=== PATIENT | female | born 1990 | race Caucasian/White ===

== ENCOUNTER 2022-10-25 14:00 | Outpatient (CLI) | payer OTHER | END 2022-10-25 14:07 | disposition home or self-care (01) | LOC: SONOGRAMA 14:00 | DX: E28.8 Other ovarian dysfunction (principal); R10.2 Pelvic and perineal pain ==

== ENCOUNTER 2023-10-30 13:00 | Inpatient (IN) | payer OTHER ==
[~2023-10-30] VITALS: Ht 175.3 cm; Wt 70.3 kg
[2023-11-06] MEDS ORDERED: PRENATAL + DHA1 EAC1 PO (14:31)
[2023-11-07] MEDS ORDERED: RINGERS SOLUTION,LACTATED 1,000 ML IV SCH (04:45)
[2023-11-07] MEDS ORDERED: OXYTOCIN 20 UNITS/1000ML RL PIGGYBAG IV ONE (05:06)
[2023-11-07] MEDS ORDERED: CHLORHEXIDINE GLUCONATE 120 ML BOTTLE TOP ONE (05:06)
[2023-11-07] MEDS ORDERED: ERYTHROMYCIN BASE 1 GM TUBE OP ONE (05:06)
[2023-11-07 05:09] LABS: URINE BILIRRUBIN Negative (NEGATIVE); URINE BLOOD Large; URINE COLOR Yellow; URINE GLUCOSE Negative (NEGATIVE); URINE LEUKOCYTE Trace; URINE NITRATE Negative; URINE PROTEIN 30 (NEGATIVE)
[2023-11-07 05:10] LABS: URINE BACTERIA 298.6 uL (0.0-1933); URINE EPITHELIAL CELLS 27.3 uL (0.0-38.8); URINE RBC 703.3 uL (0.0-20.8); URINE WBC 35.8 uL (0.0-23.2)
[2023-11-07 05:12] LABS: URINE APPEARANCE CLOUDY
[2023-11-07 05:13] LABS: HEMATOCRIT 41.7 % (36.0-45.00); HEMOGLOBIN 14.2 g/dL (12.0-15.00); MEAN CELL VOLUME 90.9 fL (80.00-100.00); MEAN CORPUSCULAR HGB CONC 34.2 g/dl (32.0-36.0); PLATELET COUNT 126 K/uL (150-450); RED BLOOD COUNT 4.59 M/uL (4.00-6.00); RED CELL DISTRIBUTION WIDTH 13.9 % (11.5-14.5)
[2023-11-07 05:27] LABS: INR < 0.93; PARTIAL THROMBOPLASTIN TIME 32.5 SECONDS (22.0-34.0); PROTHROMBIN TIME 9.7 SECONDS (9.0-11.5)
[2023-11-07 05:32] LABS: ALBUMIN 2.9 gm/dL (3.4-5.0); BILIRUBIN TOTAL 0.39 mg/dL (0.3-1.2); CALCIUM 8.4 mg/dL (8.5-10.1); CREATININE SERUM 0.56 mg/dL (0.55-1.02); GFR 124.67; GLOBULINA 3.3 G/DL (2.4-3.5); POTASSIUM 3.97 mEq/L (3.5-5.1); TOTAL PROTEIN 6.2 gm/dL (6.4-8.2)
[2023-11-07] MEDS ORDERED: ERYTHROMYCIN BASE 1 GM TUBE OP SCH (12:30)
[2023-11-07] MEDS ORDERED: IBUprofen 400 MG TABLET PO PRN (12:30)
[2023-11-07] MEDS ORDERED: CHLORHEXIDINE GLUCONATE 120 ML BOTTLE TP SCH (12:30)
[2023-11-07] MEDS ORDERED: BENZOCAINE/MENTHOL 90 ML BOTTLE TOP SCH (17:00)
[2023-11-08 07:13] LABS: HEMATOCRIT 36.2 % (36.0-45.00); MEAN CELL VOLUME 91.5 fL (80.00-100.00); MEAN CORPUSCULAR HEMOGLOBIN 30.8 pg (27.00-32.0); MEAN CORPUSCULAR HGB CONC 33.7 g/dl (32.0-36.0); RED BLOOD COUNT 3.96 M/uL (4.00-6.00); RED CELL DISTRIBUTION WIDTH 13.8 % (11.5-14.5)
[2023-11-08 07:24] LABS: HEMOGLOBIN 12.2 g/dL (12.0-15.00); PLATELET COUNT 126 K/uL (150-450)
== END 2023-11-09 14:26 | disposition home or self-care (01) | DRG 807 ==
LOC: OB/GYN 11-03 13:00 → LDR 11-07 04:43 → OB/GYN 11-07 04:43
PROVIDERS: Obstetrics & Gynecology; ADMIT Obstetrics & Gynecology Maternal & Fetal Medicine; ATTEND Obstetrics & Gynecology Maternal & Fetal Medicine
PROC: 10E0XZZ Delivery of Products of Conception, External Approach (ICD-10-PCS; principal; 2023-11-07)
PROC: 4A1HXCZ Monitoring of Products of Conception, Cardiac Rate, External Approach (ICD-10-PCS; 2023-11-07)
DX: O80 Encounter for full-term uncomplicated delivery (principal); Z37.0 Single live birth; Z3A.40 40 weeks gestation of pregnancy; Z20.822 Contact with and (suspected) exposure to COVID-19

== ENCOUNTER 2023-11-02 14:09 | Outpatient (CLI) | payer OTHER | END 2023-11-02 15:33 | disposition home or self-care (01) | LOC: NST 14:09 | PROVIDERS: ATTEND Obstetrics & Gynecology Gynecology | DX: Z34.83 Encounter for supervision of other normal pregnancy, third trimester (principal) ==

== ENCOUNTER 2025-04-21 11:50 | Inpatient (IN) | payer OTHER ==
[~2025-04-21] VITALS: Ht 175.3 cm; Wt 58.1 kg
[~2025-04-21 11:50] MED LIST: PRENATAL + DHA1 EAC1 PO
[2025-05-05] VITALS (10 sets, daily range): BP systolic 91–116; BP diastolic 56–73
[2025-05-05] MEDS ORDERED: CHLORHEXIDINE GLUCONATE 120 ML BOTTLE TOP ONE (02:31)
[2025-05-05] MEDS ORDERED: ERYTHROMYCIN BASE OPHT 1GM EACH TUBE OP ONE (02:31)
[2025-05-05] MEDS ORDERED: OXYTOCIN 20 UNITS/1000ML RL PIGGYBAG IV ONE (02:31)
[2025-05-05] MEDS ORDERED: LIDOCAINE HCL 1% 10ML VIAL ONE (02:32)
[2025-05-05 02:57] LABS: LYMPH # 4.34 (1.18-3.74)
[2025-05-05 02:59] LABS: BASO % 0.4 % (0.1-1.2); EOS # 0.22 (0.04-0.54); EOS % 1.4 % (0.7-7.0); LYMPH % 28.4 % (19.3-53.1); MEAN PLATELET VOLUME 12.90 fl (9.4-12.4); MONO # 1.25 (0.24-0.82); MONO % 8.2 % (4.7-12.5); NEUT # 9.36 (1.56-6.13); NEUT % 61.1 % (34.0-71.1); RED CELL DISTRIBUTION WIDTH 13.2 % (11.6-14.4)
[2025-05-05 03:13] LABS: INR < 0.93
[2025-05-05] MEDS ORDERED: CHLORHEXIDINE GLUCONATE 120 ML BOTTLE TP SCH (03:15)
[2025-05-05] MEDS ORDERED: OXYTOCIN 1,000 ML IV SCH (03:15)
[2025-05-05 03:16] LABS: ALT/SGPT 23.0 U/L (12-78); AST/SGOT 20.0 U/L (15-37); BILIRUBIN TOTAL 0.35 mg/dL (0.3-1.2); BUN CREA RATIO 27.0 (7.0-25.0); CREATININE SERUM 0.67 mg/dL (0.55-1.02); GFR 100.75; GLOBULINA 3.7 G/DL (2.4-3.5); GLUCOSE FASTING 93.0 mg/dL (65-100); LYMPHOCYTE MAN 29.0 %; MONOCYTE MAN 2.0 %; NEUTROPHILS MAN 65.0 %; OSMOLALITY SERUM 281.0 MOSM/KG (275-295)
[2025-05-06 00:16] VITALS: BP 94/55
[2025-05-06 06:41] LABS: BASO % 0.3 % (0.1-1.2); EOS # 0.32 (0.04-0.54); EOS % 2.8 % (0.7-7.0); LYMPH # 2.80 (1.18-3.74); LYMPH % 24.3 % (19.3-53.1); MEAN PLATELET VOLUME 12.80 fl (9.4-12.4); MONO # 0.77 (0.24-0.82); MONO % 6.7 % (4.7-12.5); NEUT # 7.52 (1.56-6.13); NEUT % 65.4 % (34.0-71.1); RED CELL DISTRIBUTION WIDTH 13.9 % (11.6-14.4)
[2025-05-06 08:18] VITALS: BP 97/64
== END 2025-05-06 15:07 | disposition home or self-care (01) | DRG 807 ==
LOC: OB/GYN → LDR 05-05 02:29 → OB/GYN 05-05 03:36
PROVIDERS: Obstetrics & Gynecology; ADMIT Obstetrics & Gynecology Maternal & Fetal Medicine; ATTEND Obstetrics & Gynecology Maternal & Fetal Medicine
PROC: 10E0XZZ Delivery of Products of Conception, External Approach (ICD-10-PCS; principal; 2025-05-05)
PROC: 4A1HXCZ Monitoring of Products of Conception, Cardiac Rate, External Approach (ICD-10-PCS; 2025-05-05)
DX: O48.0 Post-term pregnancy (principal); Z37.0 Single live birth; Z3A.41 41 weeks gestation of pregnancy

== ENCOUNTER 2025-04-28 12:46 | Outpatient (CLI) | payer OTHER | END 2025-04-28 13:30 | disposition home or self-care (01) | LOC: NST 12:46 | PROVIDERS: ATTEND Obstetrics & Gynecology Gynecology | DX: Z34.83 Encounter for supervision of other normal pregnancy, third trimester (principal) ==

== ENCOUNTER 2025-05-02 08:13 | Outpatient (CLI) | payer OTHER | END 2025-05-02 09:03 | disposition home or self-care (01) | LOC: NST 08:13 | PROVIDERS: ATTEND Obstetrics & Gynecology Gynecology | DX: Z34.83 Encounter for supervision of other normal pregnancy, third trimester (principal) ==